=== PATIENT | female | born 1960 | race Caucasian/White ===

== ENCOUNTER → 2018-04-18 07:29 | Outpatient (CLI) | payer OTHER, SELFPAY ==
--- NOTE | 2018-04-18 06:59 | BI_ITS ---
MAMMOGRAPHY - BILATERAL SCREENING REASON FOR EXAM: Female, 57 years old. Routine annual screening examination. PERTINENT HISTORY: Grandmother with breast cancer. Aunt with breast cancer. TECHNIQUE: Digital bilateral breast tommy (3D mammographic acquisition) in the CC and MLO projections. 2-D mediolateral oblique (MLO) and craniocaudad (CC) views of both breasts were obtained. CAD: Full Field Digital Mammography with Computer Added Detection was performed. COMPARISON: Comparison is made with prior study dated April 02, 2017 and March 30, 2016. FINDINGS: Breast Composition: The breasts are heterogeneously dense, which may obscure small masses. There are no dominant masses or suspicious calcifications. A tissue clip marker is once again seen in the upper lateral portion of the left breast. A tiny nodular density is seen at that site. Stable appearance of the bilateral axillary lymph nodes. No other significant abnormalities are identified. There has been no significant change since the prior study. BI/SCREENING MAMM (CAD), BILAT IMPRESSION: Stable bilateral screening mammogram. Yearly follow-up mammogram recommended. (A) ASSESSMENT CATEGORY: BIRADS Category 2: Benign. A letter regarding these results will be sent to the patient by the facility within 30 days. Approximately 10% of breast cancers are not detected by mammography. A normal mammogram should not delay biopsy of a clinically suspicious abnormality. [id number] Electronically Signed: Mt Cool MD at 11:03 EDT Tel [phone], Service support ,
== END ==
PROVIDERS: Family Provider Internal Medicine; PCP Internal Medicine; Referring Provider Internal Medicine; Visit Provider Internal Medicine
DX: Z12.31 Encounter for screening mammogram for malignant neoplasm of breast (principal)
CPT/HCPCS: 77063; 77067

== ENCOUNTER → 2019-04-24 07:00 | Outpatient (CLI) | payer OTHER, SELFPAY ==
--- NOTE | 2019-04-24 06:53 | BI_ITS ---
MAMMOGRAPHY - BILATERAL SCREENING REASON FOR EXAM: Female, 58 years old. Routine annual screening examination. PERTINENT HISTORY: Grandmother with breast cancer. Aunt with breast cancer. Remote left stereotactic breast biopsy. Occasional tenderness in the left axillary region. TECHNIQUE: Digital bilateral breast yolanda (3D mammographic acquisition) in the CC and MLO projections. 2-D mediolateral oblique (MLO) and craniocaudad (CC) views of both breasts were obtained. CAD: Full Field Digital Mammography with Computer Added Detection was performed. COMPARISON: Comparison is made with prior study dated April 18, 2018 and April 02, 2017. FINDINGS: Breast Composition: The breasts are heterogeneously dense, which may obscure small masses. There are no dominant masses or suspicious calcifications. A tissue clip marker is once again seen in the upper lateral aspect of the left breast. Stable appearance of the small nodular density at that site. Stable benign-appearing bilateral axillary lymph nodes. No other significant abnormalities are identified. There has been no significant change since the prior study. BI/SCREEN MAMM (CAD) W/YOLANDA BILAT IMPRESSION: Stable bilateral screening mammogram. Yearly follow-up mammogram recommended. (A) ASSESSMENT CATEGORY: BIRADS Category 2: Benign. A letter regarding these results will be sent to the patient by the facility within 30 days. Approximately 10% of breast cancers are not detected by mammography. A normal mammogram should not delay biopsy of a clinically suspicious abnormality. [id number] Electronically Signed: Mt Cool, at 8:40 EST , Service support ,
== END ==
PROVIDERS: Family Provider Internal Medicine; PCP Internal Medicine; Referring Provider Internal Medicine; Visit Provider Internal Medicine
DX: Z12.31 Encounter for screening mammogram for malignant neoplasm of breast (principal)
CPT/HCPCS: 77063; 77067

== ENCOUNTER 2019-09-14 17:30 | Emergency (ER) | payer OTHER, SELFPAY ==
[2019-09-14 17:31] VITALS: BP 130/82; PULSE 86; RESP 16; TEMP 36.4; O2SAT 98; BMI 28.8
--- NOTE | 2019-09-14 18:13 | ED.DCSUM_ITS ---
History of Present Illness Chief Complaint: Fever Informant: Patient Onset: Days - 4 Context: Gradual Onset Timing: Continuous - seems gone now Quality: 102 or so Tm Associated Symptoms: prod cough, rhinorrhea/congestion, myalgias, malaise Narrative: Patient with flulike symptoms for the last 4 or so days, she initially had fevers up to 102 or so but those seem to be gone. She did a virtual visit with her PCP a day or so into the illness, and the patient states that because she had congestion, she was prescribed penicillin for the possibility of a bacterial sinus infection. Now she has had vomiting and diarrhea for the last day or 2, became worse overnight to the point where she is having trouble keeping things down all day today, she has dry heaves even with trying to take sips of water and she was feeling lightheaded earlier. Her PCP was concerned she may be dehydrated and advised that she come to the emergency department for further evaluation. She said that her cough is been mildly productive, today only once she coughed up a very small streak of blood. She denies any dyspnea. She has had multiple coworkers at work with influenza, no known coronavirus infected person contact. No recent travel out of the area. She is in remission from metastatic melanoma and not on immunosuppressive medications at this time. - Past Medical History (1) Metastatic melanoma Status: Chronic (2) Hyperlipidemia Status: Chronic Past Medical History - Allergies and Home Meds Allergies/Adverse Reactions: Allergies codeine Allergy (Verified 09/14/19 17:32) Swelling Iodinated Contrast Media [Iodinated Contrast Media - IV Dye] Adverse Reaction (Verified 09/14/19 17:32) Chest tightness Primary Care Physician: Meenakshi Nickerson DO [Primary Care Provider] - Surgical History: appendectomy, cholecystectomy, lumpectomy on account of benign tumor, partial nephrectomy on account of benign kidney mass Lives: With Family Smoking Status: Former smoker Review of Systems General: Reports: Chills, Fever, Malaise. Denies: Sweats Eyes: Denies: Visual changes - bilaterally, Diplopia ENT: Reports: Rhinorrhea. Denies: Bilateral ear pain, Sore throat Cardiovascular: Denies: Chest pain, Palpitations Respiratory: Reports: Cough, Sputum. Denies: Dyspnea, Dyspnea on exertion Gastrointestinal: Reports: Nausea, Vomiting, Diarrhea. Denies: Abdominal pain, Melena, Hematochezia Genitourinary: Denies: Dysuria, Hematuria, Frequency Musculoskeletal: Reports: Myalgias. Denies: Neck pain, Back pain, Extremity Pain Skin: Denies: Rash, Wounds Neurological: Reports: Headache. Denies: Weakness, Numbness Physical Exam Vital Signs/Narrative: Vital Signs Temp Pulse Resp BP Pulse Ox 09/14/19 17:31 97.5 F L 86 16 130/82 H 98 Inital Vital Signs reviewed: Yes General: Well nourished, Well developed, No Acute Distress Head: Normocephalic, Atraumatic Eyes: Perrl, EOMI ENT: Moist mucous membranes, No rhinorrhea, TM's clear. Negative for: Sinus tenderness Neck: Supple, Nontender, No lymphadenopathy, No JVD Cardiovascular: Regular rate, Regular rhythm, No murmurs, Normal S1, Normal S2 Respiratory: No distress, CTA bilaterally, Chest nontender Abdomen: Soft, Nontender, Nondistended, Normal bowel sounds Back: Nontender, Normal Inspection. Negative for: CVA tenderness Extremities: Nontender, No edema, - - Full range of motion throughout all 4 extremities. No signs of arthritis. Skin: Normal color, No rash, No Trauma Neurological: Alert, Oriented x3, Cranial nerves II-XII grossly intact, Normal Strength, Normal Sensation, Normal Gait Psychological: Normal affect, Normal Mood Diagnostic/Tx/Re-eval Impressions Chest X-Ray 09/14/19 18:22 IMPRESSION: Normal x-ray examination of the chest. Electronically Signed: Leighton Lemus MD at 18:41 EDT , Service support , 09/14/19 18:22 Chest 1 View (Portable) [RAD] Stat 09/14/19 18:30 Mucosa - Nose Influenza Types A,B Direct FA (DELANEY) - Final Laboratory Results 09/14/19 18:20 Sodium 142 Potassium 3.6 Chloride 109 H Carbon Dioxide 27.0 Anion Gap 6 BUN 11 Creatinine 0.68 Estim Creat Clear Calc 84.42 Est GFR (MDRD) Af Amer 115 Est GFR (MDRD) Non-Af 95 BUN/Creatinine Ratio 16.2 Glucose 95 Calcium 9.0 - Medical Decision Making Tested for electrolytes, influenza, and a chest x-ray due to the minor hemoptysis. Everything is normal/negative, including influenza swab. I suspect her minor hemoptysis could have been a small mucosal tear, come from her nose which is not actively bleeding, there is no evidence of pneumonia and there is no reason to suspect pulmonary embolus given her current illness. She was treated with IV fluids, Zofran, Toradol. She improved and was able to tolerate oral fluids. Patient does not have COVID-19 exposure and is not critically ill or clinically septic, has not traveled to/from a region with a CDC level 2 or 3 travel health notice, vital signs are stable without hypoxia, is not ill enough to require admission to the hospital, and at this time does not meet current [facility] requirements for testing for COVID-19. However, given her negative flu swab and flu-like symptoms along with GI symptoms that may or may not be related to the antibiotic she is currently taking, coronavirus certainly is a possibility here. She was given appropriate discharge instructions with regards to quarantine, prescribe Zofran, and discharged home in stable condition. We discussed reasons to return. She is comfortable with this plan. ED Disposition - Plan for ED Patient: Disposition: Home or Assisted Living Diagnosis: Influenza-like illness, Nausea vomiting and diarrhea Instructions: ED Vomiting and Diarrhea Nonspecific Adult, ED URI Viral Prescriptions: Ondansetron [Zofran Odt] 8 mg PO Q8H PRN PRN #20 tab PRN Reason: Nausea Prescription Printed Referrals: Meenakshi Nickerson DO [Primary Care Provider] - As Needed Additional Instructions: -See additional attached quarantine instructions for what to do with regards to the possibility of coronavirus infection, given that you do not currently meet the [facility] requirements for testing since they require us to conserve the limited testing ability for the sickest, hospitalized patients.
--- NOTE | 2019-09-14 18:22 | RAD_ITS ---
STUDY: X-RAY CHEST REASON FOR EXAM: Female, 59 years old. SENT BY PCP FOR FEVER, BODY ACHES, N/V TECHNIQUE: Single AP portable view of the chest. COMPARISON: Previous study of 02/23/2016 FINDINGS: The lungs are clear and expanded. There is no demonstrated pleural abnormality. Normal size heart. Normal mediastinum and matthew. Normal visualized pulmonary arteries. Normal visualized aortic arch and descending thoracic aorta. Normal visualized thoracic spine. Normal visualized ribs, clavicles, and shoulders. There is no demonstrated abnormality of the visualized soft tissue structures of the upper abdomen. RAD/Chest 1 View (Portable) IMPRESSION: Normal x-ray examination of the chest. Electronically Signed: Leighton Lemus MD at 18:41 EDT , Service support ,
[2019-09-14] MEDS: 0.9% Normal Saline 1,000 ML 999 ML IV (18:23)
[2019-09-14] MEDS: Ondansetron 4 MG/2 ML Vial IV (18:23)
[2019-09-14] MEDS: Ketorolac 30 MG/ML Syringe IV (18:23)
[2019-09-14 18:53] LABS: Anion Gap 6 (5-15); BUN 11 mg/dL (7-18); BUN/Creat Ratio 16.2 RATIO (10-20); Chloride 109 mmol/L (98-107); Creatinine, Serum 0.68 mg/dL (0.55-1.02); EST Glomerular Filtration Rate 95 mL/min (>60); Est Glom Filt Rate - Afr Amer 115 mL/min (>60); Estimated Creatinine Clearance 84.42 ml/min; Glucose 95 mg/dL (74-106); Potassium 3.6 mmol/L (3.5-5.1); Sodium Level 142 mmol/L (136-145)
[2019-09-14 19:42] VITALS: BP 103/61; PULSE 61; RESP 15
== END 2019-09-14 19:43 | disposition home or self-care (01) ==
PROVIDERS: Emergency Provider Emergency Medicine; PCP Internal Medicine
DX: J11.1 Influenza due to unidentified influenza virus with other respiratory manifestations (principal); R04.2 Hemoptysis; R11.2 Nausea with vomiting, unspecified; R19.7 Diarrhea, unspecified; E78.5 Hyperlipidemia, unspecified; Z79.899 Other long term (current) drug therapy; Z85.820 Personal history of malignant melanoma of skin; Z87.891 Personal history of nicotine dependence; Z90.49 Acquired absence of other specified parts of digestive tract
CPT/HCPCS: 71045; 80048; 87804; 96361; 96374; 96375; 99283; J7030; J2405

== ENCOUNTER 2019-09-16 10:30 | Emergency (ER) | payer OTHER, SELFPAY ==
[2019-09-16 10:32] VITALS: BP 132/82; PULSE 93; RESP 18; TEMP 36.7; O2SAT 97; BMI 28.4
--- NOTE | 2019-09-16 10:56 | ED.VIS.GEN ---
History of Present Illness Chief Complaint: Shortness of Breath Narrative: Patient is a 59-year-old female who was sent in by her primary care physician. I did speak to the patient's primary care doctor. Patient has been sick for about 1 week. She initially began with a URI-like illness with congestion rhinorrhea sore throat and nonproductive cough. More recently she has had some mild intermittent sputum with occasional blood streaks. She has had intermittent fevers. On Sunday she developed severe nausea vomiting and diarrhea. In the next day in the emergency department and underwent evaluation. She had a negative rapid influenza. She was told that her presentation may be consistent with COVID-19. She has been quarantining. She followed up at her primary care physician's office today and was seen by the nurse practitioner. Patient complains she is feeling more short of breath. Her pulse ox was 92% at the office. After discussion with her primary care physician I did advise that we could reevaluate the patient although I was not sure if she would meet inpatient criteria at this time. Patient denies history of any underlying lung disease such as COPD or asthma. Past Medical History - Allergies and Home Meds Allergies/Adverse Reactions: Allergies codeine Allergy (Verified 09/16/19 10:31) Swelling Iodinated Contrast Media [Iodinated Contrast Media - IV Dye] Adverse Reaction (Verified 09/16/19 10:31) Chest tightness Primary Care Physician: Meenakshi Nickerson DO [Primary Care Provider] - Past Medical History: - - History of malignant melanoma, hyperlipidemia Surgical History: appendectomy, cholecystectomy, lumpectomy on account of benign tumor, partial nephrectomy on account of benign kidney mass Smoking Status: Former smoker Review of Systems All systems negative except as indicated General: Reports: Fever Eyes: Denies: Visual changes - bilaterally ENT: Reports: Rhinorrhea, Sore throat. Denies: Bilateral ear pain Cardiovascular: Denies: Chest pain Respiratory: Reports: Dyspnea, Cough, Sputum Gastrointestinal: Reports: Nausea, Vomiting, Diarrhea. Denies: Abdominal pain Musculoskeletal: Denies: Myalgias, Arthralgias Skin: Denies: Rash Neurological: Denies: Headache Physical Exam Vital Signs/Narrative: Vital Signs Temp Pulse Resp BP Pulse Ox 09/16/19 10:32 98.0 F 93 18 132/82 H 97 Inital Vital Signs reviewed: Yes General: Well nourished, Well developed Head: Normocephalic Eyes: EOMI ENT: Moist mucous membranes Neck: Supple Cardiovascular: Regular rate, Regular rhythm Respiratory: No distress, CTA bilaterally Abdomen: Soft, Nontender Extremities: Nontender Skin: Normal color Neurological: Alert Psychological: Normal affect Diagnostic/Tx/Re-eval Impressions Chest X-Ray 09/16/19 11:58 IMPRESSION: Increased markings at the left lung base in the region of the costophrenic angle. This has progressed as compared to prior study. This may represent an area of atelectasis and/or early infiltrate. Electronically Signed: Mt Cool, at 12:43 EDT , Service support , 09/16/19 11:58 Chest 1 View (Portable) [RAD] Stat Laboratory Results 09/16/19 09/16/19 11:15 11:15 WBC 5.2 RBC 4.41 Hgb 13.3 Hct 38.9 MCV 88.2 MCH 30.2 MCHC 34.2 RDW Std Deviation 38.6 RDW Coeff of Jennifer 12.0 Plt Count 203 MPV 8.7 Immature Gran % (Auto) 0.200 Neut % (Auto) 58.8 Lymph % (Auto) 30.7 Price % (Auto) 8.5 Eos % (Auto) 1.4 Baso % (Auto) 0.4 Absolute Neuts (auto) 3.1 Absolute Lymphs (auto) 1.59 Nucleated RBC % 0 Sodium 142 Potassium 3.7 Chloride 110 H Carbon Dioxide 27.0 Anion Gap 5 BUN 11 Creatinine 0.71 Estim Creat Clear Calc 80.85 Est GFR (MDRD) Af Amer 109 Est GFR (MDRD) Non-Af 90 BUN/Creatinine Ratio 15.5 Glucose 88 Calcium 9.2 - Medical Decision Making Patient was given IV fluids and Zofran. Labs are unremarkable. Chest x-ray shows possible left lower infiltrate. Patient has been on amoxicillin. We will discontinue amoxicillin and start Levaquin. At this time with stable vitals overall well appearance no hypoxia I do not believe she meets criteria for hospitalization. Patient does understand to return for new or worsening symptoms otherwise to follow-up as an outpatient she is agreeable to this plan was discharged home. ED Disposition - Plan for ED Patient: Disposition: Home or Assisted Living Diagnosis: Pneumonia, Suspected 2019 novel coronavirus infection Instructions: Pneumonia Prescriptions: Levofloxacin [Levaquin] 750 mg PO DAILY #7 tab Prescription Printed Referrals: Meenakshi Nickerson DO [Primary Care Provider] -
[2019-09-16 11:24] VITALS: BP 132/82; PULSE 93; RESP 18; TEMP 36.7; O2SAT 95; O2SAT 97
[2019-09-16] MEDS: Ondansetron 4 MG/2 ML Vial IV (11:33)
[2019-09-16] MEDS: 0.9% Normal Saline 1,000 ML 1000 ML IV (11:33)
[2019-09-16 11:34] LABS: Absolute Lymphocyte Count 1.59 X10^3/uL (0.83-4.51); Absolute Neutrophil Count 3.1 X10^3/uL (2.0-7.7); Basophil# 0.02 X10^3/uL; Basophil% 0.4 % (0-1); Eosinophil# 0.07 X10^3/uL; Eosinophils% 1.4 % (0-5); Hematocrit 38.9 % (37-47); Hemoglobin 13.3 g/dL (12.0-15.0); Lymphocyte # 1.59 X10^3/ul (4.0); Lymphocyte % 30.7 % (19-41); Mean Corp Hgb Conc 34.2 g/dL (32-36); Mean Corpuscular Hgb 30.2 pg (27.0-32.0); Mean Corpuscular Volume 88.2 fL (81-99); Mean Platelet Vol. 8.7 fl (6.2-12.0); Monocyte# 0.44 X10^3/uL; Monocyte% 8.5 % (0-10); NRBC Flagged by Analyzer 0 % (0-5); Neutrophil # 3.05 X10^3/uL (2.7-7.7); Neutrophil % 58.8 % (47-70); Platelet Count 203 K/mm3 (150-450); RBC Distribution Width SD 38.6 fl (35.1-43.9); Red Blood Count 4.41 M/mm3 (4.2-5.4); White Blood Count 5.2 K/mm3 (4.4-11.0)
[2019-09-16 11:42] LABS: Anion Gap 5 (5-15); BUN 11 mg/dL (7-18); BUN/Creat Ratio 15.5 RATIO (10-20); Calcium,Total 9.2 mg/dL (8.5-10.1); Chloride 110 mmol/L (98-107); Creatinine, Serum 0.71 mg/dL (0.55-1.02); EST Glomerular Filtration Rate 90 mL/min (>60); Est Glom Filt Rate - Afr Amer 109 mL/min (>60); Estimated Creatinine Clearance 80.85 ml/min; Glucose 88 mg/dL (74-106); Potassium 3.7 mmol/L (3.5-5.1); Sodium Level 142 mmol/L (136-145)
--- NOTE | 2019-09-16 11:58 | RAD_ITS ---
STUDY: X-RAY CHEST REASON FOR EXAM: Female, 59 years old. SOB, COUGH, FEVER; -- MALIGNANT MELANOMA TECHNIQUE: Single AP portable view of the chest. COMPARISON: Comparison is made with prior examination dated September 14, 2019. FINDINGS: Surgical clips are seen in the left axillary region. Minimal increased markings in the lateral aspect of the left lung base. This has progressed since prior study. This may represent either atelectasis and/or early infiltrate. There is no demonstrated pleural abnormality. Normal size heart. Normal mediastinum and matthew. Normal visualized pulmonary arteries. There is atherosclerotic calcification of the aortic arch with tortuosity. Normal visualized thoracic spine. Normal visualized ribs, clavicles, and shoulders. There is no demonstrated abnormality of the visualized soft tissue structures of the upper abdomen. RAD/Chest 1 View (Portable) IMPRESSION: Increased markings at the left lung base in the region of the costophrenic angle. This has progressed as compared to prior study. This may represent an area of atelectasis and/or early infiltrate. Electronically Signed: Mt Cool, at 12:43 EDT , Service support ,
[2019-09-16 12:36] VITALS: BP 110/65; PULSE 88; RESP 18; TEMP 36.8; O2SAT 97; O2SAT 99
[2019-09-16 13:22] VITALS: BP 118/64; PULSE 72; RESP 16; O2SAT 99
== END 2019-09-16 13:24 | disposition home or self-care (01) ==
PROVIDERS: Emergency Provider Emergency Medicine; PCP Internal Medicine
DX: J18.9 Pneumonia, unspecified organism (principal); E78.5 Hyperlipidemia, unspecified; Z87.891 Personal history of nicotine dependence; Z85.820 Personal history of malignant melanoma of skin; Z90.49 Acquired absence of other specified parts of digestive tract
CPT/HCPCS: 71045; 80048; 85025; 96361; 96374; 99283; J7030; A4216; J2405

== ENCOUNTER → 2021-04-13 07:32 | Outpatient (CLI) | payer BC, SELFPAY ==
--- NOTE | 2021-04-13 07:36 | BI_ITS ---
MAMMOGRAPHY - BILATERAL SCREENING REASON FOR EXAM: Female, 60 years old. Routine annual screening examination. PERTINENT HISTORY: Grandmother with breast cancer. Aunts with breast cancer. Remote left stereotactic breast biopsy. TECHNIQUE: Digital bilateral breast yolanda (3D mammographic acquisition) in the CC and MLO projections. 2-D mediolateral oblique (MLO) and craniocaudad (CC) views of both breasts were obtained. CAD: Full Field Digital Mammography with Computer Added Detection was performed. COMPARISON: Comparison is made with prior study dated 04/24/2019 and 04/18/2018. FINDINGS: Breast Composition: The breasts are heterogeneously dense, which may obscure small masses. There are no dominant masses or suspicious calcifications. A tissue clip marker is once again seen in the upper lateral aspect of the left breast. Stable small benign-appearing bilateral axillary lymph nodes. No other significant abnormalities are identified. There has been no significant change since the prior study. BI/SCRN MAMM (CAD)W/YOLANDA BILAT IMPRESSION: Stable bilateral screening mammogram. Yearly follow-up mammogram recommended. (A) ASSESSMENT CATEGORY: BIRADS Category 2: Benign. A letter regarding these results will be sent to the patient by the facility within 30 days. Approximately 10% of breast cancers are not detected by mammography. A normal mammogram should not delay biopsy of a clinically suspicious abnormality. [id number] Electronically Signed: Mt Cool MD at 12:27 EDT , Service support ,
== END ==
PROVIDERS: PCP Internal Medicine; Referring Provider Internal Medicine; Visit Provider Internal Medicine
DX: Z12.31 Encounter for screening mammogram for malignant neoplasm of breast (principal); Z80.3 Family history of malignant neoplasm of breast
CPT/HCPCS: 77063; 77067